=== PATIENT | female | born 1980 | race Caucasian/White ===

== ENCOUNTER → 2023-05-05 08:04 | Outpatient (REF) | payer OTHER, SELFPAY | LOC: HWRAD 08:04 | PROVIDERS: ATTENDING PHYSICIAN Internal Medicine Critical Care Medicine; FAMILY PHYSICIAN Family Medicine | DX: R91.1 Solitary pulmonary nodule (principal) | CPT/HCPCS: 71250 ==

== ENCOUNTER → 2023-10-19 09:34 | Outpatient (REF) | payer OTHER, SELFPAY | LOC: HWWDC 09:34 | PROVIDERS: ATTENDING PHYSICIAN Student in an Organized Health Care Education/Training Program; FAMILY PHYSICIAN Family Medicine | DX: Z12.31 Encounter for screening mammogram for malignant neoplasm of breast (principal) | CPT/HCPCS: 77063; 77067 ==

== ENCOUNTER → 2023-12-29 09:33 | Outpatient (REF) | payer OTHER, SELFPAY | LOC: HWRAD 09:33 | PROVIDERS: ATTENDING PHYSICIAN Chiropractor; FAMILY PHYSICIAN Family Medicine | DX: M54.2 Cervicalgia (principal) | CPT/HCPCS: 72100 ==

== ENCOUNTER → 2024-07-18 09:14 | Outpatient (REF) | payer OTHER, SELFPAY | LOC: HWRAD 09:14 | PROVIDERS: ATTENDING PHYSICIAN Internal Medicine Critical Care Medicine; FAMILY PHYSICIAN Family Medicine | DX: R91.1 Solitary pulmonary nodule (principal) | CPT/HCPCS: 71250 ==

== ENCOUNTER 2024-12-12 14:59 | Emergency (ER) | payer OTHER, SELFPAY ==
[2024-12-12 15:05] VITALS: BP 140/91
[2024-12-12 15:21] LABS: Hematocrit 40.2 % (37.0-47.0); Hemoglobin 13.8 g/dL (12.0-16.0); Mean Corp Hgb Conc. 34.3 g/dL (33.0-37.0); Mean Corpuscular Volume 85.7 fL (81.0-99.0); Nucleated Red Blood Cells % 0 %; Platelet Count 280 10^3/uL (130-400); Red Cell Dist. Width 12.0 % (11.5-14.5)
[2024-12-12 15:35] LABS: HCG, Serum Qualitative Screen Negative
[2024-12-12 15:48] LABS: ALT (SGPT) 15 U/L (0-35); AST (SGOT) 21 U/L (14-36); Albumin 4.0 g/dl (3.5-5.0); Alkaline Phosphatase 57 U/L (38-126); Blood Urea Nitrogen 10 mg/dl (7-17); Calcium 8.5 mg/dl (8.4-10.2); Carbon Dioxide 23 mmol/L (22-30); Chloride 102 mmol/L (98-107); Glucose 100 mg/dl (70-99); Lipase 226 U/L (23-300); Potassium 3.2 mmol/L (3.5-5.1); Sodium 135 mmol/L (135-145); Total Protein 6.8 g/dl (6.3-8.2); eGFR > 60.00
[2024-12-12 17:23] VITALS: BP 131/83
[2024-12-12 17:38] VITALS: BMI 25.9
[2024-12-12 18:36] VITALS: BP 128/72
[2024-12-12] MEDS: BENTYL 20 MG PO (18:43)
[2024-12-12] MEDS: KLOR-CON 20 MEQ PO (18:43)
[2024-12-12] MEDS: ZOFRAN ODT (ORALLY DISINTEGRATING) 4 MG PO (18:43)
--- NOTE | 2024-12-12 19:01 | ED.GENMED ---
History of Present Illness
General
Chief Complaint: Abdominal Pain
Source: patient
Exam Limitations: none
Time Seen by Provider: 12/12/24 17:36
Nursing documentation reviewed up to this point in time: agreed with
History of Present Illness
History of Present Illness:
44-year-old female presenting to the emergency department today with concerns of diarrhea ongoing over the past 4 days has been taking Imodium without complete relief has had some improvement of diarrhea over the past 2 days or so. Does have some
abdominal cramping denies any sharp pain. Did notice trace blood in her stool today. Urgent care sent her to the emergency department for further assessment. She denies any chest pain shortness of breath she has had some nausea but no vomiting.
Past History
Past History
ED Past Medical History: Other (Endometriosis, endometrioma, infertility)
Social History
Personal:
Review of Systems
Review of Systems
Allergies reviewed?: Yes
All Other Systems: ROS reviewed and negative except as documented in HPI and ROS
Phy Exam
Physical Exam
Physical Exam:
GENERAL: Alert , in no apparent distress
EYE: pupils equal and reactive
NECK: Supple, no significant adenopathy.
ENT: o/p clr, mmm.
CARDIAC: Regular rate and rhythm .
LUNGS: Clear breath sounds bilaterally, no acute respiratory distress, no wheezes/rales/rhonchi
ABDOMEN: Soft, without focal tenderness, no r/g, no cvat
NEUROLOGICAL: Alert and oriented, no focal neuro deficits
SKIN: Warm and dry, skin intact.
MUSCULOSKELETAL: No edema, well perfused.
PSYCH: Normal and appropriate interaction.
Course
Orders/Labs/Results
Orders:
Orders
12/12/24 15:09
Test Result ONCE
12/12/24 15:12
Complete Blood Count/With Diff Urgent
Comprehensive Metabolic Panel Urgent
HCG, Serum Qualitative Screen Urgent
Lipase Urgent
12/12/24 18:32
Dicyclomine [Bentyl] 20 mg PO NOW STA
Ondansetron Orally Disint [Zofran Odt (Orally Disintegrating)] 4 mg PO NOW STA
12/12/24 18:33
Potassium Chloride Powder [Klor-Con] 20 meq PO NOW STA
12/12/24 18:46
Stool Culture Urgent
TRANG Source: Feces/Stool
Specimen Description:
Date Specimen was Collected: 12/12/24
Time Specimen was Collected: 18:39
Abnormal Lab Results
12/12/24
15:12
Absolute Lymphs (auto) 1.0 L 10^3/uL
(1.2-3.4)
Neutrophils % 75.8 H %
(42.2-75.2)
Lymphocytes % 15.6 L %
(20.5-51.1)
Potassium 3.2 L mmol/L
(3.5-5.1)
Glucose 100 H mg/dl
(70-99)
12/12/24 15:12
12/12/24 15:12
Vital Signs
Initial and Last Documented VS:
Initial Vital Signs
Temp Pulse Resp BP Pulse Ox
98.5 F 120 19 140/91 98
12/12/24 15:05 12/12/24 15:05 12/12/24 15:05 12/12/24 15:05 12/12/24 15:05
Last Documented Vital Signs
Temp Pulse Resp BP Pulse Ox
98.7 F 101 17 128/72 97
12/12/24 18:36 12/12/24 18:36 12/12/24 18:36 12/12/24 18:36 12/12/24 18:36
MDM/Problems Addressed
MDM/Problems Addressed:
44-year-old female presenting to the emergency department today with concerns of diarrhea over the past 4 days with some vague abdominal discomfort. Here she initially was tachycardic but improved without specific treatment. No specific focal pain
to the abdomen. She was found to have some slightly low potassium level she was advised to increase potassium in her diet. She was able to tolerate by mouth here. Otherwise stool culture was sent but will for antibiotic prescription pending the
stool culture. Otherwise with improving symptoms and reassuring exam outpatient follow-up appears reasonable. Return precautions were given.
*Pulse Oximetry
SaO2: 97
Oxygen Mode of Delivery: Room air
Patient hypoxic: no (97)
*Critical Care Note
Total Time (30-74mins, 75-104mins- exclusive of procedures): Not Applicable
ED Attending Note
-
Portions of this chart may have been created with voice recognition software.� Occasional wrong word or��sound alike� substitutions may have occurred due to the inherent limitations of voice recognition software.
Discharge Plan
Departure
Patient Disposition: Home (Routine Discharge)
Date of Disposition: 12/12/24
Time of Disposition: 19:07
Patient with high blood pressure during this ER visit?: No
Condition: Good
Covid-19: Not Applicable
Discharge Problem:
Diarrhea, Hypokalemia
Instructions: Diarrhea in teens and adults
Prescriptions:
New
ondansetron 4 mg tablet,disintegrating
4 mg PO Q6H PRN (Reason: nausea and vomiting) Qty: 7 0RF
dicyclomine 20 mg tablet
20 mg PO BID Qty: 7 0RF
potassium chloride [K-Tab] 20 mEq tablet extended release
20 meq PO DAILY 7 Days Qty: 7 0RF
No Action
PNV,calcium [id number] [ Vitamin Plus Low Iron] 1 TABLET tablet
1 tab PO DAILY
oxycodone-acetaminophen 5 MG/325 MG tablet
1 tab PO Q4HPRN PRN (Reason: moderate pain) Qty: 15 0RF
ibuprofen 600 MG tablet
600 mg PO Q4HPRN PRN (Reason: cramps) 0RF
Referrals:
Mallory Calixto MD [Family Provider, Family Practice]
Activity Restrictions/Additional Instructions:
You came to the emergency department today with concerns of ongoing diarrhea. Here your reassuring assessment. Please take potassium supplementation as well as medications for symptoms. Return for any worsening, new or concerning symptoms.
Interventions
Interventions:
*Risk Screen - Suicide Last Done: 12/12/24 15:08
*General Assessment Last Done: 12/12/24 15:08
*Neglect/Abuse Screening Last Done: 12/12/24 15:08
*ED- Fall Risk Assessment Last Done: 12/12/24 17:39
*ED COVID-19 Vaccine History Last Done: 12/12/24 15:08
*ED Influenza Vaccine History Last Done: 12/12/24 15:08
CJ-Fsmhvw-Aixtlyujeo Assessment Last Done: 12/12/24 17:43
Discharge Date and Time
Print Language: GREEK
[2024-12-12 19:21] VITALS: BP 128/72
== END 2024-12-12 19:27 | disposition home or self-care (01) ==
LOC: EMR 14:59
PROVIDERS: EMERGENCY PHYSICIAN Emergency Medicine; FAMILY PHYSICIAN Family Medicine
DX: R19.7 Diarrhea, unspecified (principal); E87.6 Hypokalemia
CPT/HCPCS: 99283; 80053; 83690; 84703; 85025; 87045; 87046; 87427